=== PATIENT | female | born 1955 | race Hispanic/Latino ===

== ENCOUNTER → 2017-11-20 | Outpatient (CLI) | payer MEDICAID, OTHER ==
[~2017-11-20] MED LIST: AMLO10TA2 PO; ARIP30TA PO; CARV25TA77 PO; DIVA500T35 PO; FOLI1TAB85 PO; GABA-529 PO; ISOS30TA6 PO; LEVO88TA7 PO; LOSA100T29 PO; PRAV40TA3 PO; SEVE800 PO; VENL150C2 PO
== END | disposition home or self-care (01) ==
LOC: RAH 16:21
PROVIDERS: ATTEND Family Medicine
DX: I63.9 Cerebral infarction, unspecified (principal); G31.9 Degenerative disease of nervous system, unspecified; H70.93 Unspecified mastoiditis, bilateral; R53.1 Weakness; R29.810 Facial weakness
CPT/HCPCS: 70551